=== PATIENT | female | born 1985 | race Caucasian/White ===

== ENCOUNTER 2021-04-01 22:50 | Emergency (ER) | payer SELFPAY | END 2021-04-02 04:16 | disposition left against medical advice (07) | PROVIDERS: PCP Internal Medicine Infectious Disease | DX: Z53.21 Procedure and treatment not carried out due to patient leaving prior to being seen by health care provider (principal) | CPT/HCPCS: 99199 ==

== ENCOUNTER 2023-07-15 11:25 | Outpatient (CLI) | payer OTHER, SELFPAY ==
--- NOTE | ~2023-07-15 | XR_ITS ---
Supine and upright views of the abdomen Clinical history: Kidney stones Findings: Bowel gas pattern is nonspecific. No evidence for obstruction or free air. Right lower pole renal stones measuring 5 mm. Cholecystectomy clips are present. Osseous structures are intact. Impression: Right lower pole renal stones, as above. Reviewed, dictated and finalized at [facility]. ER PLATE OPERATOR Impression: Right lower pole renal stones, as above.
== END 2023-07-15 11:26 | disposition home or self-care (01) ==
PROVIDERS: PCP Physician Assistant; Visit Provider Physician Assistant
DX: N20.0 Calculus of kidney (principal)
CPT/HCPCS: 74018